=== PATIENT | male | born 1975 | race African-American/Black ===

== ENCOUNTER 2023-08-14 20:18 | Emergency (ER) | payer MEDICAID, OTHER ==
[~2023-08-14] VITALS: Ht 180.3 cm; Wt 107.0 kg
[2023-08-14 20:18] VITALS: BP 118/82; PULSE 116; RESP 20; O2SAT 96
[2023-08-14 21:11] VITALS: TEMP 99.5
[2023-08-14] MEDS: ACETAMINOPHEN 325 MG TAB PO ONE (21:11)
== END 2023-08-15 05:00 | disposition left against medical advice (07) ==
LOC: ER 20:18
DX: L02.211 Cutaneous abscess of abdominal wall (principal); R50.9 Fever, unspecified; Z53.21 Procedure and treatment not carried out due to patient leaving prior to being seen by health care provider